=== PATIENT | female | born 1965 | race Caucasian/White ===

== ENCOUNTER 2017-01-19 11:54 | Emergency (ER) | payer OTHER ==
[~2017-01-19 11:54] MED LIST: ALEVE220 MG PO; ASPIRIN CHEWABL81 MG PO; BENTYL20 MG PO; KLONOPIN1 MG PO; LEVAQUIN500 MG PO; MS CONTIN30 MG PO; NITROSTAT0.4 MG SL; PEPCID20 MG PO; PHENERGAN25 M1 PO; PLAVIX75 MG PO; ROXICODONE15 MG PO; SINGULAIR10 MG PO; SYNTHROID75 MCG PO; ZANAFLEX4 MG PO
[2017-04-30] MEDS ORDERED: PROZAC20 MG PO (10:19)
[2017-04-30] MEDS ORDERED: BENTYL10 MG PO (14:24)
[2017-04-30] MEDS ORDERED: REMERON15 MG PO (14:27)
[2017-04-30] MEDS ORDERED: VITAMIN B PO (14:27)
[2017-04-30] MEDS ORDERED: DETROL 2MG TABLE2 MG PO (14:28)
[2017-04-30] MEDS ORDERED: LISINOPRIL10 MG PO (14:29)
[2017-04-30] MEDS ORDERED: VENTOLIN HFA IN18 GM INH (14:29)
[2017-04-30] MEDS ORDERED: ISOSORBIDE MONO30 MG PO (14:29)
[2017-04-30] MEDS ORDERED: SPIRIVA18 MCG PO (14:30)
[2017-04-30] MEDS ORDERED: PROTONIX 40MG T40 MG PO (14:30)
[2017-04-30] MEDS ORDERED: FLONASE ALLERG9.9 ML (14:30)
[2017-04-30] MEDS ORDERED: NIFEREX150 MG PO (14:31)
[2017-04-30] MEDS ORDERED: LOSARTAN-HCTZ1 EAC2 PO (14:31)
[2017-04-30] MEDS ORDERED: ZETIA10 MG PO (14:31)
[2017-04-30] MEDS ORDERED: DULERA 200 MCG8.8 GM INH (14:31)
== END 2017-01-19 12:52 | disposition home or self-care (01) ==
LOC: FER 11:54
DX: T24.011A Burn of unspecified degree of right thigh, initial encounter (principal); Z88.0 Allergy status to penicillin; Z88.2 Allergy status to sulfonamides; X16.XXXA Contact with hot heating appliances, radiators and pipes, initial encounter; Y92.009 Unspecified place in unspecified non-institutional (private) residence as the place of occurrence of the external cause
CPT/HCPCS: 99283

== ENCOUNTER 2017-03-26 14:26 | Emergency (ER) | payer OTHER ==
[2017-04-30] MEDS ORDERED: PROZAC20 MG PO (10:19)
[2017-04-30] MEDS ORDERED: BENTYL10 MG PO (14:24)
[2017-04-30] MEDS ORDERED: VITAMIN B PO (14:27)
[2017-04-30] MEDS ORDERED: REMERON15 MG PO (14:27)
[2017-04-30] MEDS ORDERED: DETROL 2MG TABLE2 MG PO (14:28)
[2017-04-30] MEDS ORDERED: ISOSORBIDE MONO30 MG PO (14:29)
[2017-04-30] MEDS ORDERED: VENTOLIN HFA IN18 GM INH (14:29)
[2017-04-30] MEDS ORDERED: LISINOPRIL10 MG PO (14:29)
[2017-04-30] MEDS ORDERED: FLONASE ALLERG9.9 ML (14:30)
[2017-04-30] MEDS ORDERED: SPIRIVA18 MCG PO (14:30)
[2017-04-30] MEDS ORDERED: PROTONIX 40MG T40 MG PO (14:30)
[2017-04-30] MEDS ORDERED: NIFEREX150 MG PO (14:31)
[2017-04-30] MEDS ORDERED: DULERA 200 MCG8.8 GM INH (14:31)
[2017-04-30] MEDS ORDERED: ZETIA10 MG PO (14:31)
[2017-04-30] MEDS ORDERED: LOSARTAN-HCTZ1 EAC2 PO (14:31)
== END 2017-03-26 16:21 | disposition home or self-care (01) ==
LOC: FER 14:26
DX: T78.40XA Allergy, unspecified, initial encounter (principal); I10 Essential (primary) hypertension; E03.9 Hypothyroidism, unspecified; F17.210 Nicotine dependence, cigarettes, uncomplicated; Z79.899 Other long term (current) drug therapy
CPT/HCPCS: J1100